=== PATIENT | female | born 1975 | race Caucasian/White ===

== ENCOUNTER 2018-02-09 09:12 | Emergency (ER) | payer OTHER ==
[2018-02-09 09:24] VITALS: RESP 20
--- NOTE | 2018-02-09 10:28 | C.PDOC ---
History Of Present Illness 42 y/o female with no past medical history presents to the emergency room complaining of right foot and ankle pain since this morning. No trauma or fall. Pain is rated at 6/10 and patient is having increased pain with weight bearing. No numbness or tingling. Denies any associated fever, chills, nausea, or vomiting. PMD: Emmy Glover Time Seen by Provider: 02/09/18 09:27 Chief Complaint (Nursing): Lower Extremity Problem/Injury History Per: Patient History/Exam Limitations: no limitations Onset/Duration Of Symptoms: Days (x1) Current Symptoms Are (Timing): Still Present Pain Scale Rating Of: 6 Past Medical History Reviewed: Historical Data, Nursing Documentation, Vital Signs Vital Signs: Last Vital Signs Temp 97.9 F 02/09/18 09:22 Pulse 63 02/09/18 09:22 Resp 20 02/09/18 09:22 BP 134/82 02/09/18 09:22 Pulse Ox 98 02/09/18 10:28 - Medical History PMH: No Chronic Diseases Surgical History: Family History: States: Unknown Family Hx - Social History Hx Tobacco Use: No Hx Alcohol Use: No Hx Substance Use: No - Immunization History Hx Tetanus Toxoid Vaccination: No Hx Influenza Vaccination: No Hx Pneumococcal Vaccination: No Review Of Systems Except As Marked, All Systems Reviewed And Found Negative. Constitutional: Negative for: Fever, Chills Gastrointestinal: Negative for: Nausea, Vomiting Musculoskeletal: Positive for: Foot Pain (right) Neurological: Negative for: Weakness, Numbness Physical Exam - Physical Exam Appears: Well, Non-toxic, No Acute Distress Skin: Normal Color, Warm, Dry, No Rash Extremity: Normal ROM, No Tenderness, No Deformity, Swelling (and discoloration to the medial aspect of right ankle) Neurological/Psych: Oriented x3, Normal Speech, Normal Motor, Normal Sensation, No Other (focal deficits) ED Course And Treatment O2 Sat by Pulse Oximetry: 98 (RA) Pulse Ox Interpretation: Normal Medical Decision Making Medical Decision Making: Impression: Right ankle pain Time: 9:40 Initial Plan: * Motrin 400 mg PO * Tylenol 975 mg PO Pain appears consistent with joint pain/arthritis. Counseled patient regarding diagnosis and advised treating with ice packs and NSAIDs as needed. Patient with improvement in pain on reevaluation, ambulating in the ED with steady gait. Stable for d/c home. Patient instructed to follow up with primary care/ the clinic for further evaluation. Disposition Counseled Patient/Family Regarding: Diagnosis, Need For Followup, Rx Given - Disposition Disposition: HOME/ ROUTINE Disposition Time: 10:27 Condition: STABLE Prescriptions: Ibuprofen [Motrin] 600 mg PO TID #15 tab Instructions: How to Make a Hot/Cold Rice Pack Forms: [facility] (Danish), General Discharge Instructions - POA Present On Arrival: None - Clinical Impression Clinical Impression: Joint pain, Arthritis - Scribe Statement The provider has reviewed the documentation as recorded by the Cindy Meek Provider Attestation: All medical record entries made by the Cindy were at my direction and personally dictated by me. I have reviewed the chart and agree that the record accurately reflects my personal performance of the history, physical exam, medical decision making, and the department course for this patient. I have also personally directed, reviewed, and agree with the discharge instructions and disposition.
[2018-02-09 11:12] VITALS: BP 134/85; PULSE 89; TEMP 98; O2SAT 96
== END 2018-02-09 11:12 | disposition home or self-care (01) ==
LOC: EDBD 09:12 → C.ER 09:12
DX: M13.871 Other specified arthritis, right ankle and foot (principal); M25.571 Pain in right ankle and joints of right foot